=== PATIENT | male | born 1985 | race Caucasian/White ===

== ENCOUNTER 2022-04-10 21:23 | Emergency (ER) | payer BC, OTHER ==
[2022-04-10 22:21] LABS: HEMOGLOBIN 16.2 gm/dl (14.0-17.5); RED BLOOD COUNT 5.16 M/UL (4.20-5.50); WHITE BLOOD COUNT 9.9 K/UL (4.5-11.0)
[2022-04-10 22:46] LABS: BUN/CREATININE RATIO 11 (0-10)
== END 2022-04-11 03:45 | disposition home or self-care (01) ==
LOC: ER1 21:23
PROVIDERS: Physician Assistant
DX: M79.2 Neuralgia and neuritis, unspecified (principal); F17.210 Nicotine dependence, cigarettes, uncomplicated
CPT/HCPCS: 80053; 82550; 82553; 85025; 99283

== ENCOUNTER 2022-04-12 19:13 | Emergency (ER) | payer OTHER | END 2022-04-12 22:30 | disposition home or self-care (01) | LOC: ER1 19:13 | DX: L23.7 Allergic contact dermatitis due to plants, except food (principal) | CPT/HCPCS: 96372; 99282; J1100 ==